=== PATIENT | female | born 1975 | race Caucasian/White ===

== ENCOUNTER 2016-10-15 04:25 | Emergency (ER) | payer OTHER ==
[~2016-10-15] VITALS: Ht 149.9 cm; Wt 63.5 kg
[~2016-10-15 04:25] MED LIST: CIPR500T4 PO; FERR-55; HYDR-3498 PO; PHEN-538 PO; PREN-39; [UNRECOGNIZED DRUG - REMARK]
[2016-10-15 04:30] VITALS: Ht 149.9 cm; Wt 63.5 kg
[2016-10-15] MEDS ORDERED: HYDROCODONE/APAP (10/325) TAB PO ONE (05:00)
[2016-10-15] MEDS ORDERED: DIAZEPAM 5 MG TAB PO ONE (05:00)
[2016-10-15 05:02] LABS: URINE BLOOD (Dip) POC Negative (NEGATIVE)
[2016-10-15] MEDS ORDERED: HYDR-906 PO (05:15)
[2016-10-15] MEDS ORDERED: IBUP-1542 PO (05:15)
[2016-10-15] MEDS ORDERED: CYCL-319 PO (05:15)
--- NOTE | 2016-10-15 05:20 | ERD ---
ER Documentation Chief Complaint Date/Time DATE: 10/15/16 TIME: 05:18 Chief Complaint c/o lower back pain for 3 days HPI 41-year-old female presents to emergency department for complaints of lower back pain that started 3 days ago. Patient works as a caregiver, lifts heavy patients. Patient's complaining of lower back pain, it started after working 3 days ago, throbbing pain, 6/10 scale, is worse upon movement. Patient complaining of muscle spasms in the back. Patient denies hematuria or dysuria. Patient denies any fever or chills. Patient denies any nausea or vomiting. Patient denies any diarrhea or constipation. ROS All systems reviewed and are negative except as per history of present illness. Medications Home Meds Active Scripts Cyclobenzaprine Hcl* (Cyclobenzaprine Hcl*) 10 Mg Tablet, 10 MG PO TID, #15 TAB Prov:BASILIO BAUMANN NP 10/15/16 Ibuprofen* (Motrin*) 600 Mg Tab, 600 MG PO Q6H Y for PAIN AND OR ELEVATED TEMP, #30 TAB Prov:BASILIO BAUMANN NP 10/15/16 Hydrocodone/Acetaminophen (Leota 5-325 Tablet) 1 Each Tablet, 1 TAB PO Q6H Y for SEVERE PAIN LEVEL 7-10, #20 TAB Prov:BASILIO BAUMANN NP 10/15/16 Phenazopyridine Hcl* (Pyridium*) 200 Mg Tab, 200 MG PO TID Y for URINARY PAIN, # 6 TAB Prov:BASILIO BAUMANN NP 01/31/16 Ciprofloxacin Hcl* (Ciprofloxacin Hcl*) 500 Mg Tablet, 500 MG PO BID for 10 Days , TAB Prov:BASILIO BAUMANN NP 01/31/16 Hydrocodone Bit-Acetaminophen* (Leota*) 5-325 Mg Tab, 1 TAB PO Q6 Y for PAIN, # 10 TAB Prov:KATIA SNOW NP 01/04/15 Reported Medications [urine pills] No Conflict Check 10/24/12 Vits W-Ca,Fe,Fa(<1MG) ( Vitamins) 1 Tab Tablet 04/26/10 Ferrous Sulfate* (Ferrous Sulfate*) 325 Mg Tablet 04/26/10 Allergies Allergies: Coded Allergies: No Known Allergy (Unverified , 10/15/16) PMhx/Soc History of Surgery: No Anesthesia Reaction: No Hx Neurological Disorder: No Hx Respiratory Disorders: No Hx Cardiac Disorders: No Hx Psychiatric Problems: No Hx Miscellaneous Medical Probl: Yes (cervical ca; ovarian cyst) Hx Alcohol Use: No Hx Substance Use: No Hx Tobacco Use: No Smoking Status: Never smoker FmHx Family History: No coronary disease, No diabetes, No other Physical Exam Vitals Vital Signs Date Time Temp Pulse Resp B/P Pulse Ox O2 Delivery O2 Flow Rate FiO2 10/15/16 04:30 98.1 88 22 119/79 97 Physical Exam GENERAL: The patient is well developed and appropriate for usual state of health, in no apparent distress. CHEST: Clear to auscultation bilaterally. There are no rales, wheezes or rhonchi. HEART: Regular rate and rhythm. No murmurs, clicks, rubs or gallops. No S3 or S4. ABDOMEN: Soft, nontender and nondistended. Good bowel sounds. No rebound or guarding. No gross peritonitis. No gross organomegaly or masses. No Mercado sign or McBurney point tenderness. BACK: No midline or flank tenderness. Muscle spasms noted in the paraspinal aspect of the lower lumbar spine. Able to do full range of motion without any restriction. EXTREMITIES: Equal pulses bilaterally. There is no peripheral clubbing, cyanosis or edema. No focal swelling or erythema. Full range of motion. Grossly neurovascularly intact. NEURO: Alert and oriented. Cranial nerves 2-12 intact. Motor strength in all 4 extremities with 5/5 strength. Sensation grossly intact. Normal speech and gait. SKIN: There is no apparent rash or petechia. The skin is warm and dry. HEMATOLOGIC AND LYMPHATIC: There is no evidence of excessive bruising or lymphedema. No gross cervical, axillary, or inguinal lymphadenopathy. Results 24 hrs Laboratory Tests Test 10/15/16 05:08 Bedside Urine pH (LAB) 6.5 Bedside Urine Protein (LAB) Negative Bedside Urine Glucose (UA) Negative Bedside Urine Ketones (LAB) Negative Bedside Urine Blood Negative Bedside Urine Nitrite (LAB) Negative Bedside Urine Leukocyte Esterase (L Trace Current Medications Medications (Trade) Dose Ordered Sig/Yoana Route PRN Reason Start Time Stop Time Status Last Admin Dose Admin Acetaminophen/ Hydrocodone Bitart (Leota (10/325)) 1 tab ONCE ONCE PO 10/15/16 05:00 10/15/16 05:01 DC 10/15/16 05:02 Diazepam (Valium) 5 mg ONCE ONCE PO 10/15/16 05:00 10/15/16 05:01 DC 10/15/16 05:02 Procedures/MDM Medical Decision Making: Patient's pain is most likely consistent with a back strain. There is no suspicion for neurovascular compromise. Patient has intact sensation and circulation of the affected extremity and distal extremities. No incontinence, no suspicion for cauda equina syndrome, no saddle anesthesia, no symptoms of any acute bacterial infection, no symptoms of any perirectal abscesses, pilonidal cyst.There is low suspicion for septic arthritis. Patient does not have any fever. No symptoms of any aortic dissection or aortic aneurysm. Radiology exam not indicated at this time. Patient had only trace of leukocytes in the urine, most likely contaminated sample. Low suspicion for urinary tract infection or pyelonephritis. Disposition: Home. Patient is given prescription for ibuprofen for mild to moderate pain, Leota for severe pain, Flexeril for muscle spasm. Patient was advised to avoid heavy lifting , apply warm compresses on affected area. Patient was advised that if symptoms are worse, numbness, tingling, high fever, unable to move joint, worsening symptoms, to return to emergency department immediately. Otherwise, patient is advised to follow up with the primary care doctor in 5-7 days for reevaluation of symptoms. Departure Diagnosis: Primary Impression: Back pain Back pain location: low back pain Chronicity: acute Back pain laterality: bilateral Sciatica presence: without sciatica Qualified Code: M54.5 - Acute bilateral low back pain without sciatica Condition: Stable Patient Instructions: Back Pain (Acute Or Chronic) BASILIO BAUMANN NP Oct 15, 2016 05:20
== END 2016-10-15 06:00 | disposition home or self-care (01) ==
LOC: FTE 04:25
DX: M54.5 Low back pain (principal); R10.2 Pelvic and perineal pain; Z85.41 Personal history of malignant neoplasm of cervix uteri
CPT/HCPCS: 81003; Z7502; Z7610; 99284